=== PATIENT | male | born 1965 | race American Indian/Alaskan Native ===

== ENCOUNTER 2016-11-07 10:52 | Emergency (ER) | payer SELFPAY ==
[2016-11-07 11:07] VITALS: BP 134/93
--- NOTE | 2016-11-07 13:28 | Emergency Department Report ---
ED Asthma HPI - General Chief Complaint: Adult Asthma Stated Complaint: ASTHMA/WHEEZING/SPEEDY Time Seen by Provider: 11/07/16 13:12 Source: patient Mode of arrival: Ambulatory Limitations: No Limitations - History of Present Illness Initial Comments: 51-year-old -[place] male with a past medical history of asthma comes in with complaint of asthma on and off for 2 weeks. Patient reports that he has been out of his albuterol inhaler for about 1-1/2 years has been using a friend's pro-air inhaler. Patient denies any chest pain or shortness of breath patient states wheezing gets worse when I cough with a productive cough with yellow sputum patient denies any fever chills nausea vomiting no retraction or accessory muscle use on a visit. - Related Data Previous Rx's Medication Instructions Recorded Last Taken Type ALBUTEROL Inhaler [Proair] 2 puff IH QID PRN #1 inhalation 11/07/16 Unknown Rx Albuterol Sulfate [Albuterol 0.63% 0.63 mg IH TID PRN #1 box 11/07/16 Unknown Rx NEBS] Allergies Allergy/AdvReac Type Severity Reaction Status Date / Time No Known Allergies Allergy Unverified 11/07/16 11:01 ED Review of Systems ROS: Stated complaint: ASTHMA/WHEEZING/SPEEDY Other details as noted in HPI Constitutional: denies: chills, fever Eyes: denies: eye pain, eye discharge, vision change ENT: denies: ear pain, throat pain Respiratory: cough, shortness of breath, wheezing ED Past Medical Hx - Past Medical History Previous Medical History?: Yes Hx Asthma: Yes - Surgical History Past Surgical History?: No - Social History Smoking Status: Never Smoker Substance Use Type: Alcohol - Medications Home Medications: Home Medications Medication Instructions Recorded Confirmed Last Taken Type ALBUTEROL Inhaler [Proair] 2 puff IH QID PRN #1 inhalation 11/07/16 Unknown Rx Albuterol Sulfate [Albuterol 0.63% 0.63 mg IH TID PRN #1 box 11/07/16 Unknown Rx NEBS] ED Physical Exam - General Limitations: No Limitations General appearance: alert, in no apparent distress - Head Head exam: Present: atraumatic, normocephalic - ENT ENT exam: Present: normal exam, mucous membranes moist - Neck Neck exam: Present: normal inspection. Absent: tenderness - Respiratory Respiratory exam: Present: normal lung sounds bilaterally. Absent: respiratory distress, wheezes, rales, chest wall tenderness - Cardiovascular Cardiovascular Exam: Present: regular rate, normal rhythm, normal heart sounds ED Course Vital Signs 11/07/16 11:02 Temperature 98.5 F Pulse Rate 100 H Respiratory 18 Rate Blood Pressure 134/93 O2 Sat by Pulse 97 Oximetry ED Medical Decision Making - Medical Decision Making Patient's been evaluated with his provider fracture. Discussed with patient that since she's been on lisinopril he could be having a ОЛЬГА inhibitor cough. But discussed with him that he will need to follow-up with a primary care provider to discontinue since his blood pressure still stable and the fact that he does have a history of asthma. Also discussed with patient that we we'll refill his pro-air as well as right upper prescription for albuterol solution. Patient verbalized understanding he's requesting for a referral to a provider that he could afford. As patient that we will refer him to [facility] that that sees patients that are under insured and no insurance. Critical care attestation.: If time is entered above; I have spent that time in minutes in the direct care of this critically ill patient, excluding procedure time. ED Disposition Clinical Impression: Asthma Disposition: DISCHARGED TO HOME OR SELFCARE Is pt being admited?: No Does the pt Need Aspirin: No Condition: Stable Instructions: Asthma (ED) Additional Instructions: Use inhalers as prescribed. Very importantly to follow up with primary care provider for further evaluation of her cough. Prescriptions: ALBUTEROL Inhaler [Proair] 2 puff IH QID PRN #1 inhalation PRN Reason: Shortness Of Breath Albuterol Sulfate [Albuterol 0.63% NEBS] 0.63 mg IH TID PRN #1 box PRN Reason: Wheezing Referrals: PRIMARY CARE, [Primary Care Provider] - 3-5 Days [facility] [Outside] - 3-5 Days [facility] [Outside] - 3-5 Days [facility] [Outside] - 3-5 Days Forms: Work/School Release Form(ED)
== END 2016-11-07 14:22 | disposition home or self-care (01) ==
LOC: ED 10:52
DX: J45.909 Unspecified asthma, uncomplicated (principal)
CPT/HCPCS: 99282